=== PATIENT | female | born 1975 | race Caucasian/White ===

== ENCOUNTER 2019-09-05 22:30 | Emergency (ER) | payer OTHER, SELFPAY ==
--- NOTE | ~2019-09-05 | XR_ITS ---
EXAMINATION: XR foot RT min 3V DATE: 09/05/2019 23:51 INDICATION: Right foot pain TECHNIQUE: Dorsoplantar, lateral, and 2 oblique views of the right foot were obtained. COMPARISON: None. FINDINGS: There appears to be a subtle lucency in the first distal phalanx suggestive of nondisplaced fracture. The remaining osseous structures are unremarkable. The joint spaces are normal. IMPRESSION: 1. Possible nondisplaced fracture of the first distal phalanx. Reviewed, dictated and finalized at location A.
[2019-09-05 22:31] VITALS: BP 147/86; PULSE 93; RESP 21; TEMP 35.8; O2SAT 100
[2019-09-05 23:14] VITALS: BP 163/118; PULSE 94; RESP 16; TEMP 36.2; O2SAT 97
--- NOTE | 2019-09-05 23:17 | ED.LOWEXIN ---
HPI - Extremity Injury (Lower) General Chief Complaint: Extremity Injury, Lower Stated Complaint: right foot pain Time Seen by Provider: 09/05/19 23:15 Source: RN notes reviewed History of Present Illness HPI Narrative: Patient presents to emergency department from home for right foot pain. Patient states that 2 days ago she dropped a cabinet onto her right foot right at the base of the first toe. She states she initially had some swelling and noticed increased ecchymosis today as well as some mild increased pain. Patient denies any other trauma or injury. Denies any open wounds denies any injury to the nailbed. Related Data Allergies Allergy/AdvReac Type Severity Reaction Status Date / Time Penicillins Allergy Severe Swelling Verified 09/05/19 22:36 Review of Systems Review of Systems: Narrative: Gen.: Denies fevers or chills Musculoskeletal: See HPI Neuro: Denies numbness, tingling, weakness Skin: Denies rash Endo: Denies DM PMFSH Past Medical History Medical History (Updated 09/06/19 @ 00:04 by Aiden Blair DO) Patient denies significant medical history Social History Social History (Updated 09/05/19 @ 23:17 by Aiden Blair DO) Smoking packs per day: 0.5 Smoking cigarettes per day: 10.0 Gender identity (if verbalized by the patient): Female Exam Narrative: Exam Narrative: APPEARANCE: No acute distress, nontoxic, resting in bed Eyes: EOMI HEENT: Normocephalic, atraumatic, RESPIRATORY: No respiratory distress MUSCULOSKELETAl: Tenderness to palpation with ecchymosis of the dorsal aspect at the base of the first toe on the right , no subungual hematoma mild bruising at the base of the second and third toes, dorsalis pedis pulse 2+, neurovascular intact NEURO: Awake and alert. Following commands, speech normal, no focal deficits SKIN:: Warm, dry. Normal Color no rash or lesions Course Course Emergency Course: Discussed with patient results of workup and diagnosis. Discussed need for follow-up with primary care, proper use of medication, and reasons to return to the emergency department. Patient understands and agrees to current treatment plan Vital Signs Vital signs: Vital Signs Temperature 96.4 F L 09/05/19 22:31 Pulse Rate 93 09/05/19 22:31 Respiratory Rate 21 H 09/05/19 22:31 Blood Pressure 147/86 H 09/05/19 22:31 Pulse Oximetry 100 09/05/19 22:31 Temperature 97.1 F L 09/05/19 23:14 Pulse Rate 94 09/05/19 23:14 Respiratory Rate 16 09/05/19 23:14 Blood Pressure 163/118 H 09/05/19 23:14 Pulse Oximetry 97 09/05/19 23:14 Procedures Orthopedic Splinting/Casting Injury #1: Lower Extremity Injury Location: foot Pre-Formed: post op shoe Pre-Procedure Neuro Vascular Exam: normal Post-Procedure Neuro Vascular Exam: normal MDM - Extremity Injury (Lower) Imaging Data My impression: ITS Impressions Foot X-Ray 09/05/19 23:54 IMPRESSION: 1. Possible nondisplaced fracture of the first distal phalanx. Discharge Plan Discharge Clinical Impression: Nondisplaced fracture of phalanx of right great toe Patient Disposition: Home, Self-Care Condition: Stable Instructions: Antibiotic Form, Toe Fracture (ED), Contusion in Adults (ED) Additional Instructions: Return for increasing pain numbness or tingling in the extremities or any other symptoms of concern. Keep the foot elevated at rest Prescriptions: New ibuprofen [IBU] 600 mg tablet 600 mg PO Q6H PRN (Reason: pain) Qty: 20 RF: 0 Follow-up/Referrals: Cullen Muñoz MD [Physician] - (Follow-up in 2 to 3 days for further orthopedic treatment and evaluation) UNKNOWN,DOCTOR [Primary Care Provider] - Stand Alone Forms: Work/School Release IP Time of Disposition: 00:06
[2019-09-06 00:28] VITALS: BP 139/75; PULSE 86; RESP 14; TEMP 36.1; O2SAT 97
== END 2019-09-06 00:30 | disposition home or self-care (01) ==
PROVIDERS: Emergency Provider Emergency Medicine
DX: S92.424A Nondisplaced fracture of distal phalanx of right great toe, initial encounter for closed fracture (principal); F17.210 Nicotine dependence, cigarettes, uncomplicated; W20.8XXA Other cause of strike by thrown, projected or falling object, initial encounter
CPT/HCPCS: 73630; 99284

== ENCOUNTER 2019-10-21 11:38 | Emergency (ER) | payer OTHER, SELFPAY ==
--- NOTE | ~2019-10-21 | CT_ITS ---
EXAMINATION: CT abdomen pelvis w con DATE: 10/21/2019 14:07 INDICATION: Right lower quadrant abdominal pain TECHNIQUE: Computed tomography (CT) of the abdomen and pelvis was performed with 100 mL Omnipaque-350 intravenous contrast. Automated exposure control and iterative reconstruction technique were employe d. The dose-length product was 744.37 mGy-cm. COMPARISON: CT dated 01/28/2019 and ultrasound dated 10/21/2019 FINDINGS: Mild dependent atelectasis in the bilateral lower lobes. Heart size is normal. No pericardial or pleu ral effusion. Liver, gallbladder pancreas, bilateral adrenal glands and kidneys are normal. A few spl enic calcifications consistent with old granulomatous disease. Bowels including the appendix are norm al. Avid peripheral enhancement surrounding centrally lower attenuation lesions at the fundus of the gallbladder which appears solid on prior ultrasound most consistent with uterine fibroids which measu re proximal 1.8-2 cm. The third suspected fibroid noted on the prior ultrasound is not identified on the current CT images. On review of the prior ultrasound suspected third fibroid likely represents du plicated imaging of the 2 smaller nodules. 3 small cysts/follicles again noted at the right ovary. Co uple additional small cysts/follicles at the left ovary. Bladder is normal. The bowels including the appendix are normal. No free intraperitoneal gas or fluid. No pathologically enlarged abdominal or pe lvic lymphadenopathy. Mild thoracolumbar spondylosis. IMPRESSION: 1. No acute intra-abdominal/pelvic process. 2. A couple small uterine fibroids. Reviewed, dictated and finalized at location A.
--- NOTE | ~2019-10-21 | US_ITS ---
EXAMINATION: US pelvic complete w TV DATE: 10/21/2019 13:16 INDICATION: Right-sided pelvic pain TECHNIQUE: Multiple transabdominal and endovaginal sonographic images of the pelvis were obtained. COMPARISON: Ultrasound dated 08/17/[address] dated 01/28/2019 FINDINGS: The uterus measures 11.2 x 6.1 x 5.0 cm. There are 3 fibroids in the uterus the largest a hypoechoic 3.0 x 2.5 x 1.9 cm fibroid at the posterior fundus and 2 smaller isoechoic fibroids with refraction a rtifact at the margins which measure 1.5 cm and 1.3 cm in maximal dimensions. There are a couple smal l anechoic nabothian cysts at the cervix. The endometrial complex measures 3-4 mm in thickness. The r ight ovary measures 4.1 x 2.2 x 2.8 cm. There are 3 anechoic cysts/follicles in the right ovary the l argest measuring 1.9 cm. Arterial flow is seen in the right ovary on color Doppler. The left ovary is not visualized. There is no free fluid in the pelvis. IMPRESSION: 1. Fibroid uterus. Reviewed, dictated and finalized at location A. IMPRESSION: 1. Fibroid uterus.
[2019-10-21 11:43] VITALS: BP 133/83; PULSE 79; RESP 18; TEMP 36.3; O2SAT 99
--- NOTE | 2019-10-21 12:16 | ED.LOWEXIN ---
HPI - Extremity Injury (Lower) General Chief Complaint: Extremity Injury, Lower Stated Complaint: right hip/leg pain Time Seen by Provider: 10/21/19 11:58 Source: patient Mode of arrival: ambulatory Limitations: no limitations History of Present Illness HPI Narrative: This is a 44 year old female that presents to the ER for right sided pelvic pain x 1 week. Reports history of ovarian cysts. Reports she has taken anti-inflammatories with little relief. Reports the pain is a constant throb. Pain is worse with certain movements and relieved with rest. Denies fever, nausea, vomiting, dysuria or hematuria. Related Data Allergies Allergy/AdvReac Type Severity Reaction Status Date / Time Penicillins Allergy Severe Swelling Verified 10/21/19 12:00 Review of Systems Review of Systems: Narrative: CONSTITUTIONAL: Denies fever GASTROINTESTINAL: Reports abdominal pain. Denies nausea, vomiting, or diarrhea. GENITOURINARY: Denies dysuria or hematuria. MUSCULOSKELETAL: Reports back pain, joint pain, and myalgia. NEUROLOGIC: Denies numbness, or weakness. All systems reviewed & are unremarkable except as noted in HPI and below PMFSH Past Medical History Medical History (Updated 10/21/19 @ 15:12 by Carina Reilly PA-C) Patient denies significant medical history Social History Social History (Updated 09/05/19 @ 23:17 by Aiden Blair DO) Smoking packs per day: 0.5 Smoking cigarettes per day: 10.0 Gender identity (if verbalized by the patient): Female Exam Narrative: Exam Narrative: GENERAL: Well-appearing, obese, and in no acute distress. HEAD: Normocephalic, atraumatic. EYES: EOMI. CHEST: Clear to auscultation. No respiratory distress. No wheezes rales or rhonchi HEART: Regular rate and rhythm. No murmur heard. Normal peripheral pulses. ABDOMEN: Soft, nondistended, normal active bowel sounds. Mild tenderness to palpation of the RLQ, without guarding EXTREMITIES: Normal range of motion. No edema. Strength equal in bilateral lower extremities. Normal DP pulses BACK: No midline spinal tenderness SKIN: Warm, dry, no rash. NEURO: No focal deficits. Alert and oriented x3. PSYCH: Normal mood and affect Course Vital Signs Vital signs: Vital Signs Temperature 97.4 F L 10/21/19 11:43 Pulse Rate 79 10/21/19 11:43 Respiratory Rate 18 10/21/19 11:43 Blood Pressure 133/83 10/21/19 11:43 Pulse Oximetry 99 10/21/19 11:43 Temperature 97.4 F L 10/21/19 11:43 Pulse Rate 79 10/21/19 11:43 Respiratory Rate 18 10/21/19 11:43 Blood Pressure 133/83 10/21/19 11:43 Pulse Oximetry 99 10/21/19 11:43 MDM - Extremity Injury (Lower) MDM Narrative Medical decision making narrative: Patient presents to the emergency department for back pain and right-sided pelvic/abdominal pain for the last week. Patient is afebrile and nontoxic-appearing. Vitals are normal. Patient is neurologically intact. CBC without leukocytosis. Metabolic panel without acute findings. UA is normal. Bedside test is negative. Pelvic ultrasound shows a fibroid uterus. CT scan of the abdomen and pelvis is without acute intra-abdominal findings. Patient and family updated on case findings. Reports improvement with IV Tylenol and Valium. She was instructed to rest and take [id number] pain medication as needed. Patient was instructed to follow-up with primary care doctor. She was given warnings to return to the ER Lab Data Attestation: I reviewed the patient's lab results. Result diagrams: 10/21/19 12:23 10/21/19 12:23 Labs: Lab Results 10/21/19 10/21/19 10/21/19 Range/Units 12:18 12:23 12:23 WBC 8.7 (4.5-10.0) K/mm3 RBC 4.66 (4.2-5.4) M/mm3 Hgb 14.3 (12.0-15.0) g/dL Hct 40.7 (37.0-47.0) % MCV 87.3 (80-100) fl MCH 30.7 (26-34) pg MCHC 35.1 (32-36) g/dl RDW 13.1 (11.5-14.5) % Plt Count 251 (150-375) k/mm3 MPV 11.3 H (7.4-10.4) f
[2019-10-21 12:28] LABS: Add Urine Microscopic? NO; Appearance Urine Clear (Clear); Bilirubin Urine Negative (Negative); Blood Urine Negative (Negative); Color Urine Yellow (Yellow); Glucose Urine UA Negative (Negative); Ketones Urine Negative (Negative); Leukocyte Esterase Ur Negative LEU/UL (Negative); Nitrate Urine Negative (Negative); Protein Urine Negative (Negative); Specific Grav Ur 1.014 (1.001-1.035); Urobilinogen Urine Negative mg/dL (<2.0)
[2019-10-21 12:33] LABS: Basophils Absolute Auto 0.1 K/mm3 (0.0-0.1); Basophils Percent Auto 0.6 % (0.2-1.2); Eosinophils Absolute Auto 0.2 K/mm3 (0-0.3); Eosinophils Percent Auto 1.8 % (0-4.4); Hematocrit 40.7 % (37.0-47.0); Hemoglobin 14.3 g/dL (12.0-15.0); Immature Granulocyte Absolute 0.03 K/mm3 (0.00-0.031); Immature Granulocyte Percent A 0.3 % (0-0.5); Lymphocytes Absolute Auto 3.07 K/mm3 (0.9-3.2); Lymphocytes Percent Auto 35.2 % (18.3-44.2); Mean Corpuscular HGB Conc 35.1 g/dl (32-36); Mean Corpuscular Hemoglobin 30.7 pg (26-34); Mean Corpuscular Volume 87.3 fl (80-100); Mean Platelet Volume 11.3 fl (7.4-10.4); Monocytes Absolute Auto 0.5 K/mm3 (0.1-0.6); Monocytes Percent Auto 6.1 % (2.6-8.5); Neutrophils Absolute Auto 4.9 K/mm3 (1.3-6.7); Platelet Count Result 251 k/mm3 (150-375); Red Blood Count 4.66 M/mm3 (4.2-5.4); Red Cell Distribution Width 13.1 % (11.5-14.5); White Blood Count 8.7 K/mm3 (4.5-10.0)
[2019-10-21 12:47] LABS: Blood Urea Nitrogen 10 mg/dL (7-17); CRP 0.6 mg/dL (<1.0); Carbon Dioxide 24 mmol/L (22-30); Chloride 103 mmol/L (98-107); Estimated CRCL calculation 88 ml/min; Estimated Glomerular Filt Rate > 60; Glucose 89 mg/dL (65-105); Potassium 3.8 mmol/L (3.4-5.0); Sodium 134 mmol/L (137-145)
== END 2019-10-21 15:24 | disposition home or self-care (01) ==
PROVIDERS: Physician Assistant; Emergency Provider Emergency Medicine
DX: R10.31 Right lower quadrant pain (principal); M54.5 Low back pain; D25.9 Leiomyoma of uterus, unspecified; F17.210 Nicotine dependence, cigarettes, uncomplicated
CPT/HCPCS: 36415; 74177; 76830; 76856; 80048; 81003; 81025; 85025; 86140; 96365; 96375; 99284; J0131; J3360; Q9967

== ENCOUNTER 2020-02-17 08:14 | Outpatient (CLI) | payer OTHER, SELFPAY ==
[2020-02-17 08:37] LABS: Hematocrit 44.4 % (37.0-47.0); Hemoglobin 15.5 g/dL (12.0-15.0); Mean Corpuscular HGB Conc 34.9 g/dl (32-36); Mean Corpuscular Hemoglobin 30.3 pg (26-34); Mean Corpuscular Volume 86.9 fl (80-100); Mean Platelet Volume 10.7 fl (7.4-10.4); Platelet Count Result 278 k/mm3 (150-375); Red Blood Count 5.11 M/mm3 (4.2-5.4); Red Cell Distribution Width 13.2 % (11.5-14.5); White Blood Count 7.6 K/mm3 (4.5-10.0)
== END 2020-02-17 08:15 | disposition home or self-care (01) ==
PROVIDERS: Visit Provider Student in an Organized Health Care Education/Training Program
DX: R10.2 Pelvic and perineal pain (principal)
CPT/HCPCS: 36415; 85027; 86850; 86900; 86901

== ENCOUNTER 2020-02-21 01:23 | Outpatient (CLI) | payer OTHER, SELFPAY ==
[2020-02-21 20:51] LABS: SARS-CoV-2 RNA PCR Negative
== END 2020-02-21 01:24 | disposition home or self-care (01) ==
LOC: ANHCOVIDDT 01:23
PROVIDERS: Visit Provider Student in an Organized Health Care Education/Training Program
DX: Z01.812 Encounter for preprocedural laboratory examination (principal); Z20.828 Contact with and (suspected) exposure to other viral communicable diseases
CPT/HCPCS: 87635; C9803; U0003

== ENCOUNTER 2020-02-23 01:34 | Day surgery (SDC) | payer OTHER, SELFPAY ==
[2020-02-13 11:26] VITALS: BMI 32.3
[2020-02-23] VITALS (14 sets, daily range): BP systolic 113–146; BP diastolic 65–89; PULSE 56–104; RESP 12–18; TEMP 36.1–36.7; O2SAT 95–100
--- NOTE | 2020-02-23 07:33 | PM.IMHP ---
H&P: HPI History of Present Illness Date/Time: 02/23/20 07:33 Chief complaint: pelvic pain, uterine fibroid Narrative: Emily Donnelly is a 44 year old female who presents for robotic assisted TLH/BS for pelvic pain. Pt has dealt with pelvic pain for several weeks. She rates her pain a 10/10 at its worst. Pt has had an endometrial ablation and bilateral tubal ligation in the past. Pelvic US demonstrated several small masses within the myometrium suggestive of fibroids. Pt desires definitive management via hysterectomy. Review of Systems Cardiovascular: Cardiovascular: Denies chest pain, Denies leg edema, Denies palpitations, Denies dyspnea and Denies dyspnea on exertion Respiratory: Respiratory: Denies cough, Denies dyspnea and Denies dyspnea on exertion Gastrointestinal: Gastrointestinal: Denies abdominal pain, Denies constipation, Denies diarrhea, Denies nausea and Denies vomiting Genitourinary: Genitourinary: Denies hematuria, Denies urinary frequency, Denies dysuria, Denies pelvic pain, Denies urinary incontinence and Denies vaginal discharge Neurologic: Reports system reviewed and no additional complaints, except as documented Psychiatric: Psychiatric: Reports no additional psychiatric complaints Endocrine: Endocrine: Denies palpitations PMFSH Past Medical History Medical History (Updated 02/23/20 @ 07:36 by Kota James MD) Patient denies significant medical history Social History Social History (Updated 09/05/19 @ 23:17 by Aiden Blair DO) Smoking packs per day: 0.5 Smoking cigarettes per day: 10.0 Years smoked: 30 Smoking pack-years: 15.00 Smoking status: Current every day smoker Gender identity (if verbalized by the patient): Female Spiritual care concerns: No Meds Home Medications and Allergies Home Medications Medication Instructions Recorded Confirmed Type naproxen sodium [Aleve] 440 mg PO BID PRN 02/13/20 02/13/20 History Allergies Allergy/AdvReac Type Severity Reaction Status Date / Time Penicillins Allergy Severe Swelling Verified 02/13/20 11:26 Exam Const: General: no acute distress Eyes: EOM: EOMs intact bilaterally Neck: Neck: supple Thyroid: thyroid normal Chest: Breast/axilla inspection: normal inspection of the breasts Breast/axilla palpation: normal palpation of the breasts, normal palpation of the axillae and no axillary lymphadenopathy Resp: Effort & Inspection: normal respiratory effort Auscultation: clear to auscultation bilaterally Cardio: Rate: regular rate Rhythm: regular rhythm GI: Inspection: non-distended GI Palp: Yes Soft to palpation, No Tenderness to palpation present (GI) and No Guarding due to palpation present (GI) Auscultation: normal bowel sounds : General: No bladder normal to palpation External Female Exam: normal external appearance Speculum Exam - Vagina: normal vaginal discharge and No vaginal bleeding Speculum Exam - Cervix: nontender Bimanual exam- vagina & uterus: bladder normal to palpation, No Cervical tenderness present and Uterine tenderness OB/external & speculum: No vaginal bleeding Skin: General skin exam: normal color and no rashes or lesions noted Neuro: Cognition (Neuro): normal cognition Speech: normal speech Extrem: General: normal to inspection and no edema Psych: Mental Status: mental status grossly normal Affect: normal affect Assessment and Plan Assessment and plan (1) Pelvic pain: Code(s): R10.2 - Pelvic and perineal pain Status: Acute Assessment and Plan: pt has dealt with pelvic pain for several weeks pain refractory to medications pt has had endometrial ablation and BTL in the past she desires definitive management via hysterectomy (2) Uterine fibroid: Code(s): D25.9 - Leiomyoma of uterus, unspecified Status: Acute Assessment and Plan: pt presented with pelvic pain pelvic US shows several small masses within the myometrium sugge
--- NOTE | 2020-02-23 07:38 | WPDHPUPDATE1 ---
History and Physical Update Update Date/Time: 02/23/20 07:38 History and Physical has been reviewed, including an updated exam of the patient. There are NO changes in the patient's condition. Risks, benefits, and alternatives have been discussed and questions answered. Patient agrees to proceed with procedure.
[2020-02-23] MEDS: LACTATED RINGERS 1,000 ML 30 ML IV CONT ×2 (09:30→13:39)
[2020-02-23] MEDS: KETOROLAC 15 MG/ML VIAL (*BKC) IV PUSH (09:34)
[2020-02-23] MEDS: ACETAMINOPHEN 500 MG TABLET 1000 MG PO (09:34)
--- NOTE | 2020-02-23 09:44 | WPDANESEPPF ---
Anes - Initial Pre Proc Eval Procedure: Operation Date: 02/23/20 11:00 Proposed Procedures p Robotic Assisted Total Vaginal Hysterectomy with Bilateral Salpingectomy - Kota James MD Date/Time: 02/23/20 09:44 Surgeon: Kota James MD Pre Op Diagnosis: pelvic pain, uterine fibroid Patient Data Age: 44 Gender: F Height: 5 ft 5 in Weight: 86 kg Last Vital Signs Temp 36.2 C L 02/23/20 08:55 Pulse 80 02/23/20 08:55 Resp 18 02/23/20 08:55 BP 146/89 H 02/23/20 08:55 Pulse Ox 98 02/23/20 08:55 Allergies Allergy/AdvReac Type Severity Reaction Status Date / Time Penicillins Allergy Severe Swelling Verified 02/23/20 09:09 as a child Home Medications Medication Instructions Recorded Confirmed Type naproxen sodium [Aleve] 440 mg PO BID PRN 02/13/20 02/23/20 History Patient hx anesthesia problems: none Family hx anesthesia problems: none PMFSH Past Medical History Medical History Patient denies significant medical history Social History Social History Smoking packs per day: 0.5 Smoking cigarettes per day: 10.0 Years smoked: 30 Smoking pack-years: 15.00 Smoking status: Current every day smoker Gender identity (if verbalized by the patient): Female Spiritual care concerns: No Anes - Eval Final PreProcedure Day of Procedure 02/23/20 09:44 Patient weight: obese Heart: regular rate and rhythm Lungs: clear to auscultation Airway: Mallampati scale class II Neurological: alert and oriented ASA classification: II Emergent: no Anesthetic plan: proceed Anesthesia type and monitoring: general ETT and standard monitoring Informed Consent: The patient's anesthetic plan and its attendant risks and benefits were discussed with the patient/family/POA. Questions were solicited and answers provided to the satisfaction of the patient/family/POA.
[2020-02-23] MEDS: CLINDAMYCIN 900 MG/D5W 50 ML 900 MG/50 ML PIGGYBACK 50 MG IVPB (11:57)
[2020-02-23] MEDS: LIDO 1%/EPINEPHRINE 1:100,000 20 ML VIAL INFILTRATE (13:05)
--- NOTE | 2020-02-23 13:41 | PM.PROC ---
Procedure Note - Detailed Date of procedure: 02/23/20 Pre-op diagnosis: pelvic pain, uterine fibroid Procedure performed: Robotic assisted total laparoscopic hysterectomy bilateral salpingectomy Description of procedure: PROCEDURE IN DETAIL: After the patient was appropriately consented she was taken to the operating room where she was transferred to the table in a dorsal supine position. General anesthesia was then induced with endotracheal intubation. The patient was transferred to a dorsal lithotomy position using adjustable yellow-fin stirrups. Her position was adjusted for appropriate support of her lower back and lower extremities. The patient was prepped and draped. A transurethral oh catheter was place. The cervix was sequentially dilated and a 8cm Maliha II uterine manipulator placed in typical fashion about a 3.5 cm SERGEI ring. Gloves were changed. After confirmation of a functioning orogastric tube, lidocaine was injected at Woods's point in the LUQ and a 5mm incision was made. A 5mm Optiview trocar was then inserted into the abdominal cavity under direct visualization and done so without complication. The abdomen was then insufflated with approximately 2-3L of CO2 establishing a pneumoperitoneum and the patient was placed in Trendelenburg position. Just above the umbilicus in the midline, a 8 mm incision made after injection of lidocaine and a 8 mm bladeless trocar advanced into the abdominal cavity under direct visualization without incident. We subsequently placed two robotic ports in a similar fashion, one in the left mid-quadrant and one in the right, 10cm lateral to the midline port. The robot was then docked. Pelvic survey was performed. There was bilateral omental adhesions to the adnexa at the site of the previous bilateral tubal ligation. These adhesions were taken down with monopolar scissors and blunt dissection. Good hemostasis was maintained. The Left fallopian tube was identified out to the fimbrae. The fallopian tube had been transected in the mid isthmic portion from a previous tubal ligation. The fallopian tube was then coagulated and ligated along the inferior mesosalpinx toward the uterus including both segments of the fallopian tube. The utero-ovarian ligament was identified and ligated. The Left round ligament was divided and the posterior aspect of the broad ligament was then skeletonized down to the level of the internal cervical os, mobilizing the ureter laterally. The bladder flap was then created sharply. The ipsilateral uterine artery was skeletonized, bipolar cauterized and transected. A similar procedure was performed on the contralateral side, developing the pelvic spaces, coagulating and dividing the IP away from the ureter, completing the bladder flap, and skeletonizing, ligating, and dividing the uterine artery on this side. We ensured the vaginal pneumo-occluder balloon was insufflated and made a circumferential colpotomy using monopolar current. The uterus, cervix, and bilateral tubes were then delivered transvaginally. I then re-approximated the colpotomy with a single interuppted 0-vicryl at the left apex and running #1 PDO Quill suture in 2 layers. Following this dissection, the abdomen and pelvis were copiously irrigated and all surgical sites found to be hemostatic. Skin sites were reapproximated with 4-0 Vicryl in a subcuticular fashion. Steri-Strips were placed. The patient tolerated the procedure well. Sponge, needle and instrument counts were correct x 2 and the patient was taken to recovery in stable condition. Ancef was given for antimicrobial prophylaxis. The patient had SCD's on for VTE prophylaxis during the entire procedure. Anesthesia: GETA Surgeon: Kota James MD Estimated blood loss (mL): 50 Drains: No Packing: No Pathology: yes (uterus, cervix, bilateral fallopian tubes, bilateral ovaries ) Complications: No immediate complications Condition: stable Disposition: PACU Findings: bilateral omental ad
[2020-02-23] MEDS: fentaNYL CITRATE INJ (*CRX) 100 MCG/2 ML VIAL 25 MCG IV PUSH ×4 (14:05→14:37)
--- NOTE | 2020-02-23 14:28 | SUR.PHASEI ---
[id number] sbar faxed floor notified
[2020-02-23] MEDS: DEXTROSE 5%/LACTATED RINGERS 1,000 ML 125 ML IV CONT (15:28)
--- NOTE | 2020-02-23 16:15 | PM.DS ---
DS: Admitting Diagnosis Admitting Diagnosis Admitting Diagnosis: pelvic pain, uterine fibroid DS: Summary Hospital Course Hospital Course: Emily Donnelly was admitted after robotic assisted total laparoscopic hysterectomy and bilateral salpingectomy for pelvic pain and uterine fibroids. The above procedure was performed with no complications. She is doing well post op. She states her pain is well controlled with PO medications. She reports minimal bleeding. She is ambulating up to the chair. Her oh catheter was removed. She is tolerating PO without N/V. She reports passing flatus. Status at Discharge Overall status at discharge: patient is progressing back to baseline Time Spent with Patient Time attestation: Total time spent providing and/or coordinating discharge services: Time spent: Less than 30 minutes Exam Const: General: comfortable and no acute distress Limitations: no limitations Resp: Effort & Inspection: normal respiratory effort Auscultation: clear to auscultation bilaterally Cardio: Rate: regular rate Rhythm: regular rhythm GI: Inspection: non-distended GI Palp: Yes Soft to palpation, Yes Tenderness to palpation present (GI) (milder tenderness to deep palpation) and No Guarding due to palpation present (GI) Auscultation: normal bowel sounds Other: incisions C/D/I covered with dermabond Urinary Catheter: Urinary Catheter: urine clear Skin: General skin exam: normal color Extrem: General: normal to inspection Psych: Mental Status: mental status grossly normal Affect: normal affect DS: Data Data Completed and Pending Pending studies at discharge: Pending at discharge 02/23/20 13:09 Surgical [PTH] Routine Discharge Plan Discharge Patient Disposition: Home, Self-Care Patient Instructions: Laparoscopic Hysterectomy (DC) Stand Alone Forms: General Discharge Instructions Follow-up/Referrals: Kota James MD [Physician] - Discharge Medications: New hydrocodone-acetaminophen 5-325 mg Tablet 1 tab PO Q4H PRN (Reason: Pain Rated 5 Or Less) Qty: 28 RF: 0 ibuprofen 600 mg Tablet 600 mg PO Q6H PRN (Reason: Cramping) Qty: 30 RF: 0 docusate sodium [Colace] 100 mg capsule 100 mg PO BID Qty: 30 RF: 0 No Action naproxen sodium [Aleve] 220 mg Tablet 440 mg PO BID PRN (Reason: Pain) RF: 0
[2020-02-23] MEDS: KETOROLAC 30 MG/ML VIAL (*BKC) IV PUSH (16:42)
[2020-02-23] MEDS: HYDROcodone/acetaminophen (*CRX) 10-325 MG TABLET 1 TAB PO (17:07)
--- NOTE | 2020-02-23 17:59 | PC.NURSE ---
1510 Pt admitted to second floor room 279 per bed from PACU after Robotic assisted vaginal hysterectomy and Bilateral salpingectomy today with Dr. James. Pt awake; responding appropriately. Oriented to room, staffing and procedures; VSS and assessment WNL.
[2020-02-23] MEDS: HYDROcodone/acetaminophen (*CRX) 5-325 MG TABLET 1 TAB PO (23:36)
[2020-02-24] VITALS: BP 104/62; PULSE 90; RESP 16; TEMP 37; O2SAT 100
[2020-02-24 05:16] VITALS: BP 112/62; PULSE 62; RESP 16; TEMP 36.9; O2SAT 100
--- NOTE | 2020-02-24 07:10 | WPDANLDPN2 ---
Anes-Prog Note L&D Date/Time: 02/24/20 07:10 Comfortable throughout: labor and delivery Neuraxial method: epidural Epidural/Spinal procedure site: clean & non-tender Neuro status: Neuro function grossly intact. Cardiovascular status: normal Respiratory status: normal Airway patency: baseline Mental status: baseline Post-Op hydration status: normal Vital Signs: Last Vital Signs Temp 36.9 C 02/24/20 05:16 Pulse 62 02/24/20 05:16 Resp 16 02/24/20 05:16 BP 112/62 02/24/20 05:16 Pulse Ox 100 02/24/20 05:16 Pain score (VAS): 04/29 I/O: Intake & Output 02/23/20 02/23/20 02/24/20 15:59 23:59 07:59 Intake Total 084.139 6324 1000 Output Total 248 94 3844 Balance 543.625 085 -2200 Post-procedural complaints: none Patient feedback: Patient satisfied with anesthetic care.
--- NOTE | 2020-02-24 07:11 | WPDANESPN ---
Anes - Prog Note Post-Op Date/Time: 02/24/20 07:11 Cardiovascular status: normal Respiratory status: normal Airway patency: baseline Mental status: baseline Post-Op hydration status: normal Vital Signs: Last Vital Signs Temp 36.9 C 02/24/20 05:16 Pulse 62 02/24/20 05:16 Resp 16 02/24/20 05:16 BP 112/62 02/24/20 05:16 Pulse Ox 100 02/24/20 05:16 Pain Score (VAS): 04/29 I/O: Intake & Output 02/23/20 02/23/20 02/24/20 15:59 23:59 07:59 Intake Total 243.069 9070 1000 Output Total 994 30 2163 Balance 543.625 980 2200 Post-procedural complaints: none Patient Feedback: Patient satisfied with anesthetic care.
[2020-02-24 07:40] VITALS: BP 113/79; PULSE 64; RESP 16; TEMP 37.1; O2SAT 98
[2020-02-24 08:45] VITALS: PULSE 64; RESP 16; O2SAT 98
[2020-02-24] MEDS: KETOROLAC 30 MG/ML VIAL (*BKC) IV PUSH (09:07)
[2020-02-24] MEDS: HYDROcodone/acetaminophen (*CRX) 10-325 MG TABLET 1 TAB PO (09:08)
--- NOTE | 2020-02-24 11:44 | PM.GYNPNOP ---
LIGHT TECHNICIAN - A/P Postoperative Procedures: Procedures Operation Date: 02/23/20 11:00 Actual Procedures Side Surgeon p Robotic Assisted Total Vaginal Hysterectomy with Bilateral Salpingectomy Kota James MD Time Spent With Patient Time with patient: less than 15 minutes LIGHT TECHNICIAN- PN:Subj Post-Op Subjective Date/time seen: 02/24/20 11:44 Interval history: Pain OK. Tolerating diet. Voiding. Would like to go home. Exam Narrative: Exam Narrative: AVSS I/O OK ABD soft, nontender. Incisions c/d/i. EXT nontender LIGHT TECHNICIAN - PN: Obj Data Vital Signs Vital Signs: Vital Signs - 24 hr 02/23/20 13:40 02/23/20 13:50 02/23/20 14:05 Temperature 36.1 C L Pulse Rate 88 83 64 Respiratory Rate 12 18 14 Blood Pressure 123/80 124/81 124/80 Pulse Oximetry 95 100 100 02/23/20 14:20 02/23/20 14:40 02/23/20 14:55 Temperature Pulse Rate 75 65 60 Respiratory Rate 18 16 12 Blood Pressure 115/76 113/78 116/75 Pulse Oximetry 96 96 96 02/23/20 15:20 02/23/20 15:30 02/23/20 15:45 Temperature 36.4 C L Pulse Rate 63 65 56 L Respiratory Rate 16 Blood Pressure 117/71 122/65 118/75 Pulse Oximetry 96 100 100 02/23/20 16:15 02/23/20 16:45 02/23/20 17:30 Temperature Pulse Rate 60 60 91 Respiratory Rate Blood Pressure 117/74 122/68 126/75 Pulse Oximetry 97 97 100 02/23/20 18:54 02/24/20 00:00 02/24/20 05:16 Temperature 36.7 C 37.0 C 36.9 C Pulse Rate 104 H 90 62 Respiratory Rate 16 16 16 Blood Pressure 135/71 104/62 112/62 Pulse Oximetry 100 100 100 02/24/20 07:40 02/24/20 08:45 Temperature 37.1 C Pulse Rate 64 64 Respiratory Rate 16 16 Blood Pressure 113/79 Pulse Oximetry 98 98 Intake/Output Intake/Output: Intake & Output 02/21/20 02/22/20 02/23/20 02/24/20 23:59 23:59 23:59 23:59 Intake Total 5038.125 0473 Output Total 195 6890 Balance 7615.485 -795 Meds/Results Medications: Active Medications Generic Name Dose Route Start Last Admin Trade Name Freq PRN Reason Stop Dose Admin Hydrocodone Bitart/Acetaminophen 1 tab 02/23/20 15:02 02/23/20 23:36 Hydrocodone/Acetaminophen (*Crx) 5-325 Mg Tablet PO 1 tab Q3H PRN Administration Pain Rated 5 or Less Hydrocodone Bitart/Acetaminophen 1 tab 02/23/20 15:02 02/24/20 09:08 Hydrocodone/Acetaminophen (*Crx) 10-325 Mg Tablet PO 1 tab Q3H PRN Administration Pain Rated 6 or Greater Dextrose/Lactated Ringer's 1,000 mls @ 125 mls/hr 02/23/20 15:02 02/24/20 05:18 Dextrose 5%/Lactated Ringers IV CONT Not Given .Q8H JONNIE Ibuprofen 600 mg 02/23/20 15:02 Ibuprofen 600 Mg Tablet PO Q6H PRN Cramping Ketorolac Tromethamine 30 mg 02/23/20 15:02 02/24/20 09:07 Ketorolac 30 Mg/Ml Vial (*Bkc) IV PUSH 02/28/20 15:03 30 mg Q6H PRN Administration Pain Rated 4-6 Naloxone HCl 0.1 mg 02/23/20 15:02 Naloxone Hcl 0.4 Mg/Ml Vial IV PUSH Q2M PRN Respiratory rate less than 10 Ondansetron HCl 4 mg 02/23/20 15:02 Ondansetron Inj 4 Mg/2 Ml Vial IV PUSH Q6H PRN Nausea And Vomiting
[2020-02-24] MEDS: HYDROcodone/acetaminophen (*CRX) 5-325 MG TABLET 1 TAB PO (12:14)
== END 2020-02-24 12:25 | disposition home or self-care (01) ==
LOC: ANHSURGERY 08:50 → ANHOB2 15:05
PROVIDERS: Visit Provider Student in an Organized Health Care Education/Training Program
PROC: (CPT 58571; principal; 2020-02-23 11:00)
DX: R10.2 Pelvic and perineal pain (principal); N83.8 Other noninflammatory disorders of ovary, fallopian tube and broad ligament; F17.210 Nicotine dependence, cigarettes, uncomplicated
CPT/HCPCS: 58571; 88307; 99199; A9270; J1100; J1170; J1580; J1885; J2250; J2405; J2704; J2710; J3010; J7030; J7120; J7121

== ENCOUNTER 2020-12-07 23:31 | Emergency (ER) | payer OTHER, SELFPAY ==
[2020-12-07 23:33] VITALS: BP 134/80; PULSE 74; RESP 16; TEMP 36.3; O2SAT 100
[2020-12-08 02:01] VITALS: BP 127/88; PULSE 61; RESP 16; TEMP 36.2; O2SAT 100
--- NOTE | 2020-12-08 02:10 | ED.SKABFB ---
HPI - Skin/Abscess/Foreign Bdy General Chief complaint: Skin/Abscess/Foreign Body Stated complaint: red spot on leg Time Seen by Provider: 12/08/20 01:32 History of Present Illness HPI narrative: Patient is a 45-year-old female who presents ER with redness to her medial left lower leg. Noticed some redness and discomfort yesterday and has streaked a little bit of her leg. No calf pain. No lower extremity swelling. No chest pain or shortness of breath. No recent injury or prolonged immobilization. No fevers or chills or sweats. No pustules noted. She has noted that the redness is warm. Related Data Home Medications Medication Instructions Recorded Confirmed naproxen sodium [Aleve] 440 mg PO BID PRN 02/13/20 02/23/20 Allergies Allergy/AdvReac Type Severity Reaction Status Date / Time Penicillins Allergy Severe Swelling Verified 12/08/20 02:03 as a child Review of Systems Constitutional: Constitutional: Denies chills, Denies fever(s) and Denies weakness Cardiovascular: Cardiovascular: Denies chest pain, Denies rapid heart rate and Denies radiating jaw, neck or arm pain Respiratory: Respiratory: Denies cough and Denies dyspnea Musculoskeletal: Musculoskeletal: Denies back pain and Denies muscle cramps Integumentary/Breasts: Skin/Breast: Denies pruritus, Reports erythema (With warmth) and Denies rash PMFSH Past Medical History Medical History (Updated 12/08/20 @ 02:16 by Reggie Boudreaux MD) Patient denies significant medical history Surgical History Surgical History (Updated 12/08/20 @ 02:13 by Reggie Boudreaux MD) History of endometrial ablation Social History Social History Smoking packs per day: 0.5 Smoking cigarettes per day: 10.0 Years smoked: 30 Smoking pack-years: 15.00 Smoking status: Current every day smoker Substance use: never Substance use type: does not use Gender identity (if verbalized by the patient): Female Spiritual care concerns: No Exam Narrative: GENERAL: Well-appearing, well-nourished, and in no acute distress. HEAD: Normocephalic, atraumatic. CHEST: Clear to auscultation. No respiratory distress. HEART: Regular rate and rhythm. Normal peripheral pulses. EXTREMITIES: Normal range of motion. Negative Homans' sign. No edema. SKIN: Warm, dry, no rash. Slight redness of the distal aspect of the left lower extremity medially. Slight warmth as well. No pustules or vesicles. No breakdown in skin. NEURO: N Alert and oriented x3. PSYCH: Normal mood and affect. Course Course Emergency Course: No evidence of bug bite or break to skin. Patient may have early cellulitis given the redness and warmth when compared to the opposite side. Very mild. First dose of antibiotics here. Vital Signs Vital signs: Vital Signs Temperature 97.4 F L 12/07/20 23:33 Pulse Rate 74 12/07/20 23:33 Respiratory Rate 16 12/07/20 23:33 Blood Pressure 134/80 12/07/20 23:33 Pulse Oximetry 100 12/07/20 23:33 Temperature 97.2 F L 12/08/20 02:01 Pulse Rate 61 12/08/20 02:01 Respiratory Rate 16 12/08/20 02:01 Blood Pressure 127/88 12/08/20 02:01 Pulse Oximetry 100 12/08/20 02:01 Discharge Plan Discharge Clinical Impression: Cellulitis Patient Disposition: Home, Self-Care Condition: Stable Instructions: Antibiotic Form, Cellulitis (ED) Additional Instructions: Return to the ER if you have chest pain or shortness of breath, you cannot keep down food or water, you lose consciousness, you have additional concerns. Additionally return to the ER if you have pain in your calf, you have increased swelling in 1 leg compared to the other, or you have any additional concerns. Prescriptions: New doxycycline monohydrate 100 mg tablet 100 mg PO BID Qty: 14 RF: 0 No Action naproxen sodium [Aleve] 220 mg Tablet 440 mg PO BID PRN (Reason: Pain) RF: 0 hydrocodone-a
--- NOTE | 2020-12-08 02:12 | PC.NURSE ---
Pt ambulatory to ED c/o mild redness to left lower anterior vargas. no edema noted. skin warm/dry. reports pain only with activity. noticed it yesterday. no clear lines of demarcation. a/o x 4. call light in reach.
== END 2020-12-08 02:28 | disposition home or self-care (01) ==
PROVIDERS: Emergency Provider Emergency Medicine
DX: L03.116 Cellulitis of left lower limb (principal); F17.210 Nicotine dependence, cigarettes, uncomplicated
CPT/HCPCS: 99283

== ENCOUNTER 2022-09-08 23:41 | Emergency (ER) | payer OTHER, SELFPAY ==
--- NOTE | ~2022-09-08 | CT_ITS ---
EXAMINATION: CT facial bones w con DATE: 09/09/2022 02:40 INDICATION: Left upper tooth pain. Facial swelling. TECHNIQUE: Computed tomography (CT) of the facial bones and maxillofacial region was performed with 1 00 mL Omnipaque 350 intravenous contrast. Automated exposure control and iterative reconstruction jerry hnique were employed. The dose-length product was 424.62 mGy-cm. COMPARISON: None. FINDINGS: The orbits are normal. There is a left face soft tissue swelling. There are no pathological ly enlarged lymph nodes. There is mild mucosal thickening in the paranasal sinuses. There are numerou s broken teeth and multiple teeth with caries and periapical lucencies. Tooth 21 demonstrates a cario us lesion, periapical lucencies, and breech of the buccal cortex of the alveolar process. Tooth 19 is broken with periapical lucencies and breech of the buccal cortex of the alveolar process with overly ing phlegmon. IMPRESSION: 1. Extensive dental disease. Phlegmon superficial to tooth 19. No definite drainable abscess. Reviewed, dictated and finalized at location A. IMPRESSION: 1. Extensive dental disease. Phlegmon superficial to tooth 19. No definite drai nable abscess.
[2022-09-08 23:43] VITALS: BP 132/65; PULSE 75; RESP 20; TEMP 36.4; O2SAT 98
[2022-09-09 00:39] VITALS: BP 141/77; PULSE 77; RESP 15; TEMP 36.6; O2SAT 96
--- NOTE | 2022-09-09 00:45 | PC.NURSE ---
Patient states that her upper jaw throbs and is at a 3/10 on the pain scale.
--- NOTE | 2022-09-09 01:23 | ED.GENADULT ---
HPI - General Adult General Chief complaint: Unspecified <LUIS Sifuentes Last Filed: 09/09/22 02:25> Stated complaint: tooth pain, facial swelling <LUIS Sifuentes Last Filed: 09/09/22 02:25> Time Seen by Provider: 09/09/22 01:02 <LUIS Sifuentes Last Filed: 09/09/22 02:25> Source: patient <LUIS Sifuentes Last Filed: 09/09/22 02:25> Mode of arrival: ambulatory <LUIS Sifuentes Last Filed: 09/09/22 02:25> Limitations: no limitations <LUIS Sifuentes Last Filed: 09/09/22 02:25> History of Present Illness HPI narrative: This is a 46-year-old female who presents to the ED with chief complaint of left upper dental pain x2 days. She states today she is here because she has swelling in the left side of her face. She states the swelling came on today today and has gotten worse since initial onset. Reports pain in the left cheek area where the swelling is. Denies any vision changes or pain with extraocular movements. <LUIS Sifuentes Last Filed: 09/09/22 02:25> Related Data Home medications: Home Medications Medication Instructions Recorded Confirmed naproxen sodium 220 mg tablet 440 mg PO BID PRN Pain 02/13/20 02/23/20 (Aleve) <LUIS Sifuentes Last Filed: 09/09/22 02:25> Allergies/adverse reactions: Allergies Allergy/AdvReac Type Severity Reaction Status Date / Time Penicillins Allergy Severe Swelling Verified 12/08/20 02:03 as a child <LUIS Sifuentes Last Filed: 09/09/22 02:25> Review of Systems Review of Systems: CONSTITUTIONAL: Denies fever, chills, or sweats. EYES: Denies visual changes, redness, or discharge. ENT: See HPI CARDIOVASCULAR: Denies chest pain, palpitations, or edema. RESPIRATORY: Denies cough or dyspnea. GASTROINTESTINAL: Denies abdominal pain, nausea, vomiting, or diarrhea. GENITOURINARY: Denies dysuria or hematuria. SKIN: Denies rash or itching. MUSCULOSKELETAL: Denies back pain, joint pain, or myalgia. NEUROLOGIC: Denies headache, numbness, dizziness, or weakness. PSYCHIATRIC: Denies anxiety or depression. <Joel Hunt PA-C - Last Filed: 09/09/22 02:25> PMFSH Past Medical History Medical History: Medical History (Updated 09/09/22 @ 03:31 by Kevyn Nesbitt MD) Patient denies significant medical history <Joel Hunt PA-C - Last Filed: 09/09/22 02:25> Surgical History Surgical History: Surgical History (Updated 12/08/20 @ 02:13 by Reggie Boudreaux MD) History of endometrial ablation <Joel Hunt PA-C - Last Filed: 09/09/22 02:25> Social History Social History: Social History Smoking packs per day: 0.5 Smoking cigarettes per day: 10.0 Years smoked: 30 Smoking pack-years: 15.00 Smoking status: Current every day smoker Substance use: never Substance use type: does not use Gender identity (if verbalized by the patient): Female Sexual Orientation (if Verbalized by the Patient): Straight or Heterosexual Spiritual care concerns: No <Joel Hunt PA-C - Last Filed: 09/09/22 02:25> Exam Narrative: GENERAL: Well-appearing, well-nourished, and in no acute distress. HEAD: Normocephalic, atraumatic. EYES: PERRLA and EOMI. ENT: Nares clear, no rhinorrhea or epistaxis. Mucous membranes moist. Oropharynx without tonsillar hypertrophy exudate or other lesions. Poor dentition throughout the mouth. Tenderness to the left upper gums. There is moderate swelling to the left side of the face nearing the left eye. No redness of the skin. No drainage. No induration or fluctuance. NECK: Supple. No adenopathy or masses. CHEST: No respiratory distress. Clear to auscultation. No wheezes rales or rhonchi HEART: Regular rate and rhythm. No murmur heard. Normal peripheral pulses. ABDOMEN: Soft, nontender, nondistended, normal active bowel sounds. MSK: Normal range of motio
[2022-09-09] MEDS: KETOROLAC 15 MG/ML VIAL (*BKC) IV PUSH (01:44)
[2022-09-09] MEDS: ONDANSETRON INJ 4 MG/2 ML VIAL IV PUSH (01:53)
[2022-09-09 01:55] LABS: Basophils Percent Auto 0.3 % (0.2-1.2); Eosinophils Absolute Auto 0.3 K/mm3 (0-0.3); Eosinophils Percent Auto 1.9 % (0-4.4); Hematocrit 41.9 % (37.0-47.0); Hemoglobin 14.6 g/dL (12.0-15.0); Immature Granulocyte Absolute 0.04 K/mm3 (0.00-0.031); Immature Granulocyte Percent A 0.3 % (0-0.5); Lymphocytes Absolute Auto 3.25 K/mm3 (0.9-3.2); Mean Corpuscular HGB Conc 34.8 g/dl (32-36); Mean Corpuscular Hemoglobin 30.8 pg (26-34); Mean Corpuscular Volume 88.4 fl (80-100); Mean Platelet Volume 10.8 fl (7.4-10.4); Monocytes Absolute Auto 0.9 K/mm3 (0.1-0.6); Monocytes Percent Auto 6.6 % (2.6-8.5); Neutrophils Absolute Auto 8.6 K/mm3 (1.3-6.7); Neutrophils Percent Auto 65.9 % (45.5-73.1); Platelet Count Result 269 k/mm3 (150-375); Red Blood Count 4.74 M/mm3 (4.2-5.4); Red Cell Distribution Width 13.2 % (11.5-14.5)
[2022-09-09] MEDS: CLINDAMYCIN 300 MG in DEXTROSE 5% IN WATER 50 ML 104 MG IVPB (02:05)
[2022-09-09 02:06] LABS: Anion Gap 6 mmol/L (8-16); Blood Urea Nitrogen 14 mg/dL (7-17); Calcium 9.1 mg/dL (8.4-10.2); Carbon Dioxide 24 mmol/L (22-30); Chloride 108 mmol/L (98-107); Estimated CRCL calculation 108 ml/min; Estimated Glomerular Filt Rate > 60; Glucose 102 mg/dL (65-110); Sodium 138 mmol/L (137-145)
[2022-09-09 02:10] VITALS: BP 124/75; PULSE 69; RESP 15; O2SAT 97
[2022-09-09 03:55] VITALS: BP 135/82; PULSE 63; RESP 14; TEMP 36.8; O2SAT 98
== END 2022-09-09 03:56 | disposition home or self-care (01) ==
PROVIDERS: Emergency Provider Physician Assistant; PCP Family Medicine Sports Medicine
DX: K04.7 Periapical abscess without sinus (principal); F17.210 Nicotine dependence, cigarettes, uncomplicated
CPT/HCPCS: 36415; 70487; 80048; 85025; 96365; 96375; 99284; J1885; J2405; Q9967

== ENCOUNTER 2023-06-14 13:34 | Emergency (ER) | payer OTHER, SELFPAY ==
--- NOTE | ~2023-06-14 | US_ITS ---
EXAMINATION: US venous doppler UE RT DATE: 06/14/2023 16:12 INDICATION: edema, erythema . TECHNIQUE: Grayscale ultrasound images without and with compression and Doppler ultrasound images of the right upper extremity veins were obtained. COMPARISON: None. FINDINGS: The visualized portions of the right internal jugular vein, subclavian vein, axillary vein, brachial veins, basilic vein, cephalic vein, radial vein, and ulnar vein are patent. IMPRESSION: No deep venous thrombosis. Reviewed, dictated and finalized at location K. IMPRESSION: No deep venous thrombosis.
--- NOTE | ~2023-06-14 | XR_ITS ---
EXAM: XR wrist RT min 3V DATE: 06/14/2023 14:55 HISTORY: WRIST TO ELBOW REDNESS, pain, swelling NO INJURY . COMPARISON: None available. FINDINGS: Normal mineralization. No fracture or dislocation. No lytic or blastic lesion. Joint space s are maintained. No erosion or periosteal change. Soft tissues within normal limits. IMPRESSION: No acute osseous finding in the right wrist. Reviewed, dictated and finalized at location K. [employer] SERVICES AIDE
[2023-06-14 13:34] VITALS: BP 149/80; PULSE 112; RESP 16; TEMP 36.2; O2SAT 96
--- NOTE | 2023-06-14 14:12 | ED.UPPEXIN ---
HPI - Extremity Injury (Upper) General Chief Complaint: Extremity Injury, Upper Stated Complaint: RUE swelling Time Seen by Provider: 06/14/23 14:00 Focused HPI: This is a 47 year old female that presents to the ER for right upper extremity pain and swelling. Ongoing since this morning. Has had trouble with pain in this wrist over the last several weeks. Is seeing an orthopedics doctor for this in a couple of days. Started to develop redness. Denies fevers or decreased ROM. GENERAL: Well-appearing, well-nourished, and in no acute distress. HEAD: Normocephalic, atraumatic. CHEST: Clear to auscultation. ?No respiratory distress. HEART: Regular rate and rhythm.? NEURO: ?Alert and oriented x3. Patient screened in triage and initial orders placed.? ?Additional care and disposition to be based upon?diagnostic testing and treatment. Related Data Home Medications Medication Instructions Recorded Confirmed naproxen sodium 220 mg tablet 440 mg PO BID PRN Pain 02/13/20 02/23/20 (Aleve) Allergies Allergy/AdvReac Type Severity Reaction Status Date / Time Penicillins Allergy Severe Swelling Verified 06/14/23 16:02 as a child Review of Systems Review of Systems: CONSTITUTIONAL: Denies fever SKIN: Reported redness MUSCULOSKELETAL: Reports joint pain, and myalgia. NEUROLOGIC: Denies numbness, or weakness. All systems reviewed & are unremarkable except as noted in HPI and below PMFSH Past Medical History Medical History (Updated 06/14/23 @ 18:10 by Carina Reilly PA-C) Patient denies significant medical history Surgical History Surgical History (Updated 12/08/20 @ 02:13 by Reggie Boudreaux MD) History of endometrial ablation Social History Social History Smoking packs per day: 0.5 Smoking cigarettes per day: 10.0 Years smoked: 30 Smoking pack-years: 15.00 Smoking status: Current every day smoker Substance use: never Substance use type: does not use Gender identity (if verbalized by the patient): Female Sexual Orientation (if Verbalized by the Patient): Straight or Heterosexual Spiritual care concerns: No Exam Narrative: GENERAL: Well-appearing, well-nourished, and in no acute distress. HEAD: Normocephalic, atraumatic. EYES: EOMI. CHEST: Clear to auscultation. No respiratory distress. No wheezes rales or rhonchi HEART: Regular rate and rhythm. No murmur heard. Normal peripheral pulses. EXTREMITIES: Normal range of motion. Mild edema with overlying redness to the right forearm. Normal radial pulse. Normal sensation SKIN: Warm, dry, no rash. NEURO: No focal deficits. Alert and oriented x3. PSYCH: Normal mood and affect Course Course Emergency Course: Patient updated on her workup and agrees with plan of care Vital Signs Vital signs: Vital Signs Temperature 97.2 F L 06/14/23 13:34 Pulse Rate 112 H 06/14/23 13:34 Respiratory Rate 16 06/14/23 13:34 Blood Pressure 149/80 H 06/14/23 13:34 Pulse Oximetry 96 06/14/23 13:34 Temperature 98.3 F 06/14/23 18:23 Pulse Rate 78 06/14/23 18:23 Respiratory Rate 14 06/14/23 18:23 Blood Pressure 131/87 06/14/23 18:23 Pulse Oximetry 96 06/14/23 18:23 MDM - Extremity Injury (Upper) MDM Narrative Medical decision making narrative: Patient presents to the emergency department for right forearm swelling and redness. She is afebrile and nontoxic appearing. She is neurovascularly intact. Mildly tachycardic upon arrival, this normalized without intervention. CBC without leukocytosis. Inflammatory markers are not elevated. Right upper extremity venous Doppler without evidence of DVT. Right wrist x-ray without acute osseous abnormalities. Patient will be started on oral antibiotics for likely mild cellulitis. She is to follow up with her orthopedics doctor at her scheduled appointment. She was given warnings to return to the ER Differential
[2023-06-14 14:22] LABS: Basophils Percent Auto 0.5 % (0.2-1.2); Eosinophils Absolute Auto 0.2 K/mm3 (0-0.3); Eosinophils Percent Auto 2.4 % (0-4.4); Hematocrit 41.3 % (37.0-47.0); Hemoglobin 14.4 g/dL (12.0-15.0); Immature Granulocyte Absolute 0.02 K/mm3 (0.00-0.031); Immature Granulocyte Percent A 0.2 % (0-0.5); Lymphocytes Absolute Auto 3.46 K/mm3 (0.9-3.2); Lymphocytes Percent Auto 41.2 % (18.3-44.2); Mean Corpuscular HGB Conc 34.9 g/dl (32-36); Mean Corpuscular Hemoglobin 30.8 pg (26-34); Mean Corpuscular Volume 88.2 fl (80-100); Mean Platelet Volume 11.4 fl (7.4-10.4); Monocytes Absolute Auto 0.6 K/mm3 (0.1-0.6); Monocytes Percent Auto 7.2 % (2.6-8.5); Neutrophils Absolute Auto 4.1 K/mm3 (1.3-6.7); Neutrophils Percent Auto 48.5 % (45.5-73.1); Platelet Count Result 261 k/mm3 (150-375); Red Blood Count 4.68 M/mm3 (4.2-5.4); Red Cell Distribution Width 12.9 % (11.5-14.5); White Blood Count 8.4 K/mm3 (4.5-10.0)
[2023-06-14 14:34] LABS: INR 0.9; Prothrombin Time 12.9 Seconds (11.1-14.7)
[2023-06-14 14:37] LABS: Anion Gap 7 mmol/L (8-16); Blood Urea Nitrogen 10 mg/dL (7-17); CRP 0.5 mg/dL (<1.0); Calcium 9.3 mg/dL (8.4-10.2); Carbon Dioxide 22 mmol/L (22-30); Chloride 110 mmol/L (98-107); Estimated CRCL calculation 94 ml/min; Estimated Glomerular Filt Rate > 60; Glucose 106 mg/dL (65-110); Sodium 139 mmol/L (137-145)
[2023-06-14 14:49] LABS: Erythrocyte Sedimentation Rate 15 mm/hr (0-20)
[2023-06-14 16:03] VITALS: BP 142/86; PULSE 80; RESP 16; O2SAT 97
[2023-06-14 18:23] VITALS: BP 131/87; PULSE 78; RESP 14; TEMP 36.8; O2SAT 96
== END 2023-06-14 18:25 | disposition home or self-care (01) ==
PROVIDERS: Emergency Provider Physician Assistant; PCP Family Medicine
DX: L03.113 Cellulitis of right upper limb (principal); F17.210 Nicotine dependence, cigarettes, uncomplicated
CPT/HCPCS: 36415; 73110; 80048; 85025; 85610; 85652; 85730; 86140; 93971; 99284

== ENCOUNTER 2023-11-22 23:59 | Emergency (ER) | payer OTHER, SELFPAY ==
[2023-11-23 00:08] VITALS: BP 154/86; PULSE 83; RESP 20; TEMP 36.1; O2SAT 100
--- NOTE | 2023-11-23 05:01 | PC.NURSE ---
Patient comes to intake desk to state she is leaving and going home. Patient states I will come back if I need to, but I can't wait any longer so I am going home. I will come back if it gets worse but I need to go home and sleep for work. Patient educated on the risks of leaving before being seen by a provider and benefits of staying to be evaluated. Patient verbalized understanding and ambulated out of the ED with a steady gait with belongings in hand. Patient marked as left without being seen triaged.
== END 2023-11-23 05:03 | disposition left against medical advice (07) ==
PROVIDERS: PCP Family Medicine
DX: R21 Rash and other nonspecific skin eruption (principal)
CPT/HCPCS: 99199